=== PATIENT | female | born 1995 | race Caucasian/White ===

== ENCOUNTER 2018-07-08 14:41 | Emergency (ER) | payer OTHER, MEDICAID ==
[~2018-07-08] VITALS: Ht 165.1 cm; Wt 63.5 kg
[2018-07-08 14:49] VITALS: BP_SYST 126
[2018-07-08] MEDS ORDERED: ONDANSETRON 4 MG ODT TAB PO ONE (15:15)
[2018-07-08] MEDS ORDERED: KETOROLAC TROMETHAMINE 60 MG/2 ML VIAL IM ONE (15:15)
[2018-07-08 15:24] LABS: BASOPHILS % (AUTO) 0.3 % (0.0-2.0); EOSINOPHILS % (AUTO) 0.3 % (0.0-4.0); HEMATOCRIT 40.9 % (36-48); LYMPHOCYTES # (AUTO) 1.2 K/uL (1.0-5.5); MEAN CORPUSCULAR HEMOGLOBIN 33 pg (27-31); MEAN CORPUSCULAR HGB CONC 34 % (32-36); MEAN CORPUSCULAR VOLUME 95 fL (79.0-98.0); MONOCYTES # (AUTO) 0.5 K/uL (0.0-1.0); MONOCYTES % (AUTO) 8.3 % (1.7-9.3); NEUTROPHILS # (AUTO) 4.7 K/uL (1.8-7.7); NEUTROPHILS % (AUTO) 72.1 % (40.0-70.0); PLATELET COUNT (AUTO) 262 K/uL (130-430); RED BLOOD CELL COUNT(AUTO) 4.29 MIL/uL (4.2-6.2); RED CELL DISTRIBUTION WIDTH 12.9 % (9.0-15.0); WHITE BLOOD COUNT (AUTO) 6.5 K/uL (4.8-10.8)
[2018-07-08 15:40] LABS: CALCIUM 9.2 mg/dL (8.4-11.0); CREATININE 0.74 mg/dL (0.55-1.30); POTASSIUM 4.7 mmol/L (3.5-5.1)
[2018-07-08 15:46] LABS: ALBUMIN 4.1 g/dL (3.4-4.8); TOTAL BILIRUBIN 0.9 mg/dL (0.0-1.0)
[2018-07-08 17:50] VITALS: BP_SYST 126
== END 2018-07-08 17:50 | disposition home or self-care (01) ==
LOC: SED 14:41 → EDBD 14:41 → SED 17:50
DX: R51 Headache (principal); R03.0 Elevated blood-pressure reading, without diagnosis of hypertension
CPT/HCPCS: 36415; 70450; 80053; 81025; 85025; 96372; 99284; J1885; Q0162

== ENCOUNTER 2020-11-09 00:18 | Emergency (ER) | payer MEDICAID, OTHER ==
[~2020-11-09] VITALS: Ht 165.1 cm; Wt 65.8 kg
[2020-11-09 00:53] VITALS: BP_SYST 129
[2020-11-09 02:12] LABS: BILIRUBIN,URINE NEGATIVE (NEGATIVE); BLOOD, URINE 3+ (NEGATIVE); CLARITY/URINE SL CLOUDY (CLEAR); COLOR,URINE YELLOW (YELLOW); GLUCOSE,URINE TRACE (NEGATIVE); KETONES,URINE TRACE (NEGATIVE); LEUKOCYTE ESTERASE ,URINE NEGATIVE (NEGATIVE); NITRITE, URINE POSITIVE (NEGATIVE); PROTEIN URINE 3+ (NEGATIVE)
[2020-11-09 02:51] LABS: BACTERIA,URINE MANY /HPF (None Seen); RBC,URINE 20-50 /HPF (0-3); WBC,URINE 0-3 /HPF (0-3)
[2020-11-09] MEDS ORDERED: PROCHLORPERAZINE EDISYLATE 10 MG/2 ML VIAL IVP ONE (04:15)
[2020-11-09] MEDS ORDERED: KETOROLAC TROMETHAMINE 30 MG VIAL IVP ONE (04:15)
[2020-11-09] MEDS ORDERED: NACL 0.9% 1,000 ML IV ONE (04:15)
[2020-11-09] MEDS ORDERED: cefTRIAXone 2 GM VIAL ONE (04:50)
[2020-11-09] MEDS ORDERED: IBUP-1969 PO (08:16)
[2020-11-09] MEDS ORDERED: CEPH500C2 PO (08:16)
[2020-11-09 08:27] VITALS: BP_SYST 115
== END 2020-11-09 08:27 | disposition home or self-care (01) ==
LOC: SED 00:18
DX: N23 Unspecified renal colic (principal); N39.0 Urinary tract infection, site not specified
CPT/HCPCS: 74176; 76376; 81000; 87086; 96365; 96375; 99284; J0696; J0780; J1885; J7030